=== PATIENT | male | born 1970 | race Caucasian/White ===

== ENCOUNTER 2016-12-02 16:32 | Day surgery (SDC) | payer OTHER ==
[~2016-12-02 16:32] MED LIST: DIPRIVAN 200 MG/20 ML IV ONE; Ketamine HCl 50 MG/ML IV ONE
[2016-12-02] MEDS ORDERED: Lactated Ringers 1,000 ML IV SCH (17:00)
[2016-12-02] MEDS ORDERED: XYLOCAINE 1% HCL 20 ML MDV ONE (17:47)
[2016-12-02 19:02] VITALS: O2SAT 98
[2016-12-02 19:07] VITALS: BP 139/93; PULSE 80
--- NOTE | 2016-12-03 09:03 | XRAY ---
Indication: Foreign body. Intraoperative fluoroscopy was provided for 3 minutes 43 seconds. A single digital spot image of the proximal lower leg demonstrates small focus of medial soft tissue radiolucency presumed related to surgery and a external radiopacity presumed foreign body in question. Correlate with intraoperative findings/report.
--- NOTE | 2016-12-03 09:16 | OP ---
SURGERY DATE/TIME: 12/02/2016 1756 PREOPERATIVE DIAGNOSIS: Foreign body right lower extremity calf. POSTOPERATIVE DIAGNOSIS: Foreign body right lower extremity calf. PROCEDURE: Operative intervention with exploration of the previous fragment path with removal of an 8 mm fairly round piece of shrapnel with fluoroscopic guidance. OPERATING TIME: About 30 minutes. SURGEON: Mahesh Bob M.D. ANESTHESIA: MAC. COMPLICATIONS: None. CONDITION: Stable. INDICATION: The patient received a piece of shrapnel to the right calf at work. There was attempt to remove this in the [facility] that was not successful despite ultrasound guidance also. He was sent here for intraoperative extraction. He was seen and examined in holding. DESCRIPTION OF PROCEDURE: He was brought to surgery. Time out was performed. Routine prep and drape performed. The piece was metallic. It showed up immediately on fluoro right calf that looked accessible through the previous puncture site and this was reopened. A clamp was placed. It was bumped with a clamp and moved a little bit but it was not able to be captured. A common bile duct biliary instrument, Virgilio Stone forceps was obtained and this was able to capture the device under fluoro and then be pulled out. It was 8 mm fairly spherical on one side and a little more flat on the other side. Clearly a fragment of metal. Hemostasis was satisfactory. Skin closed loosely with inverting 3-0 Vicryl and sterile dressing applied. The patient tolerated the procedure satisfactory.
== END 2016-12-02 19:10 | disposition home or self-care (01) ==
LOC: SDC 16:32
PROVIDERS: ATTEND Surgery
PROC: 0JCN3ZZ Extirpation of Matter from Right Lower Leg Subcutaneous Tissue and Fascia, Percutaneous Approach (ICD-10-PCS; principal; 2016-12-02)
DX: S80.851A Superficial foreign body, right lower leg, initial encounter (principal)
CPT/HCPCS: 00400; 76000; 99140; J2704